=== PATIENT | female | born 1940 | race Caucasian/White ===

== ENCOUNTER → 2019-12-22 | Outpatient (CLI) | payer OTHER, BC | LOC: SJCVC 11:31 | PROVIDERS: ATTEND Internal Medicine Cardiovascular Disease | DX: R94.31 Abnormal electrocardiogram [ECG] [EKG] (principal); I49.1 Atrial premature depolarization; I10 Essential (primary) hypertension; I51.81 Takotsubo syndrome; J44.9 Chronic obstructive pulmonary disease, unspecified; E78.00 Pure hypercholesterolemia, unspecified; K50.919 Crohn's disease, unspecified, with unspecified complications; F41.9 Anxiety disorder, unspecified; Z79.01 Long term (current) use of anticoagulants; Z79.899 Other long term (current) drug therapy; Z86.718 Personal history of other venous thrombosis and embolism; Z86.711 Personal history of pulmonary embolism; Z87.891 Personal history of nicotine dependence ==

== ENCOUNTER → 2020-01-23 | Outpatient (CLI) | payer OTHER, BC | LOC: SJCVCIMAG 09:07 | PROVIDERS: ATTEND Internal Medicine Cardiovascular Disease | DX: I08.1 Rheumatic disorders of both mitral and tricuspid valves (principal); I27.20 Pulmonary hypertension, unspecified; I10 Essential (primary) hypertension; K80.20 Calculus of gallbladder without cholecystitis without obstruction; I42.9 Cardiomyopathy, unspecified; Z79.899 Other long term (current) drug therapy; Z87.891 Personal history of nicotine dependence ==

== ENCOUNTER → 2020-01-26 | Outpatient (CLI) | payer OTHER, BC | LOC: SJCVC 10:53 | PROVIDERS: ATTEND Internal Medicine Cardiovascular Disease | DX: I10 Essential (primary) hypertension (principal); I07.1 Rheumatic tricuspid insufficiency; I27.20 Pulmonary hypertension, unspecified; E78.00 Pure hypercholesterolemia, unspecified; F41.9 Anxiety disorder, unspecified; J44.9 Chronic obstructive pulmonary disease, unspecified; Z87.891 Personal history of nicotine dependence; Z79.899 Other long term (current) drug therapy; Z86.718 Personal history of other venous thrombosis and embolism ==

== ENCOUNTER → 2020-03-05 | Outpatient (CLI) | payer OTHER, BC | LOC: RAD 12:56 | PROVIDERS: ATTEND Internal Medicine | DX: J43.9 Emphysema, unspecified (principal) ==

== ENCOUNTER → 2020-03-31 | Outpatient (CLI) | payer OTHER, BC | LOC: SJCVC 16:19 | PROVIDERS: ATTEND Internal Medicine Cardiovascular Disease | DX: I49.8 Other specified cardiac arrhythmias (principal); I27.20 Pulmonary hypertension, unspecified; I10 Essential (primary) hypertension; E78.00 Pure hypercholesterolemia, unspecified; J44.9 Chronic obstructive pulmonary disease, unspecified; I07.1 Rheumatic tricuspid insufficiency; E03.9 Hypothyroidism, unspecified; M81.0 Age-related osteoporosis without current pathological fracture; I42.9 Cardiomyopathy, unspecified; E55.9 Vitamin D deficiency, unspecified; Z98.890 Other specified postprocedural states; Z88.0 Allergy status to penicillin; Z88.8 Allergy status to other drugs, medicaments and biological substances; Z79.899 Other long term (current) drug therapy; Z87.891 Personal history of nicotine dependence; Z86.711 Personal history of pulmonary embolism; Z82.49 Family history of ischemic heart disease and other diseases of the circulatory system ==

== ENCOUNTER → 2020-06-03 | Outpatient (CLI) | payer OTHER, BC | LOC: RAD 10:19 | PROVIDERS: ATTEND Internal Medicine | DX: J43.8 Other emphysema (principal); R91.8 Other nonspecific abnormal finding of lung field; J84.89 Other specified interstitial pulmonary diseases; J98.4 Other disorders of lung; J44.9 Chronic obstructive pulmonary disease, unspecified ==

== ENCOUNTER → 2020-06-07 | Outpatient (CLI) | payer OTHER, BC | LOC: RAD 11:42 | PROVIDERS: ATTEND Internal Medicine | DX: J43.2 Centrilobular emphysema (principal); K80.20 Calculus of gallbladder without cholecystitis without obstruction; R91.1 Solitary pulmonary nodule; J98.4 Other disorders of lung ==

== ENCOUNTER → 2020-06-28 | Outpatient (CLI) | payer OTHER, BC | LOC: SJCVCIMAG 09:06 | PROVIDERS: ATTEND Internal Medicine Cardiovascular Disease | DX: I49.9 Cardiac arrhythmia, unspecified (principal); I10 Essential (primary) hypertension; E78.00 Pure hypercholesterolemia, unspecified; J44.9 Chronic obstructive pulmonary disease, unspecified; I27.20 Pulmonary hypertension, unspecified; Z79.899 Other long term (current) drug therapy ==

== ENCOUNTER → 2021-01-17 | Outpatient (CLI) | payer OTHER, BC | LOC: SJCVCIMAG 13:08 | PROVIDERS: ATTEND Internal Medicine Cardiovascular Disease | DX: I08.1 Rheumatic disorders of both mitral and tricuspid valves (principal); R94.31 Abnormal electrocardiogram [ECG] [EKG]; I10 Essential (primary) hypertension; I51.81 Takotsubo syndrome; E78.00 Pure hypercholesterolemia, unspecified; Z86.718 Personal history of other venous thrombosis and embolism; F41.9 Anxiety disorder, unspecified; J43.9 Emphysema, unspecified; E03.9 Hypothyroidism, unspecified; Z87.891 Personal history of nicotine dependence; Z72.89 Other problems related to lifestyle; Z79.899 Other long term (current) drug therapy; Z88.0 Allergy status to penicillin; Z88.8 Allergy status to other drugs, medicaments and biological substances; Z95.818 Presence of other cardiac implants and grafts ==